=== PATIENT | male | born 2000 | race American Indian/Alaskan Native ===

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

== ENCOUNTER 2022-04-05 16:01 | Emergency (ER) | payer OTHER ==
[~2022-04-05] VITALS: Ht 177.8 cm; Wt 63.5 kg
[~2022-04-05 16:01] MED LIST changes: +Cleocin HCl150 MG PO
[2022-04-05] MEDS ORDERED: ERYT.5TO LEFTEYE (18:02)
== END 2022-04-05 18:38 | disposition home or self-care (01) ==
LOC: ER 16:01
DX: T15.02XA Foreign body in cornea, left eye, initial encounter (principal); X58.XXXA Exposure to other specified factors, initial encounter; Y93.H2 Activity, gardening and landscaping; Y92.096 Garden or yard of other non-institutional residence as the place of occurrence of the external cause
CPT/HCPCS: A9270

== ENCOUNTER 2025-03-08 17:24 | Emergency (ER) | payer OTHER ==
[~2025-03-08] VITALS: Ht 182.9 cm; Wt 56.7 kg
[~2025-03-08 17:24] MED LIST changes: +ERYT.5TO LEFTEYE
[2025-03-08] MEDS ORDERED: Ipratropium/Albuterol SulF 2.5-0.5MG/3 ML Amp INH ONE (18:05)
[2025-03-08 18:30] LABS: CORONAVIRUS COVID-19 AG Negative (NEGATIVE); INFLUENZA A AG Negative (NEGATIVE); INFLUENZA B AG Negative (NEGATIVE)
[2025-03-08 19:15] VITALS: BP 123/76
[2025-03-08] MEDS ORDERED: RX Prepack Albuterol 1 PREPACK/6.7 GM INH UD ONE (19:20)
== END 2025-03-08 19:22 ==
LOC: ER 17:24
PROVIDERS: Student in an Organized Health Care Education/Training Program
DX: J20.9 Acute bronchitis, unspecified (principal); J06.9 Acute upper respiratory infection, unspecified; F17.290 Nicotine dependence, other tobacco product, uncomplicated; Z88.0 Allergy status to penicillin
CPT/HCPCS: 71046; 87428-QW; 94640; 94664; 99284-25; A9270